=== PATIENT | male | born 1940 | race Caucasian/White ===

== ENCOUNTER → 2019-05-16 | Outpatient (CLI) | payer MEDICARE, BC ==
[2019-05-16 08:39] LABS: Basophils % (A) 0 %; Eosinophils # (A) 0.1 k/uL (0-0.7); Eosinophils % (A) 2 %; HCT 43.4 % (39.0-53.0); HGB 14.1 gm/dL (13.0-17.5); Lymphocytes # (A) 1.3 k/uL (1.0-4.8); Lymphocytes % (A) 21 %; MCH 32.3 pg (25.0-35.0); MCHC 32.6 g/dL (31.0-37.0); MCV 99.1 fL (80.0-100.0); Mean Platelet Volume 7.6; Monocytes # (A) 0.4 k/uL (0-1.0); Monocytes % (A) 7 %; Neutrophils # (A) 3.9 k/uL (1.3-7.7); Neutrophils % (A) 65 %; Platelet Count 307 k/uL (150-450); RBC 4.38 m/uL (4.30-5.90); RDW 13.5 % (11.5-15.5)
[2019-05-16 19:01] LABS: African American GFR (CKD) 84.4 (60.0-200.0); Albumin 4.1 g/dL (3.80-4.90); Albumin/Globulin Ratio 1.86 (1.60-3.17); Anion Gap 7.5 mmol/L (4.00-12.00); Carbon Dioxide 27.5 mmol/L (21.6-31.8); Globulin 2.2 g/dL (1.6-3.3); LDL Cholesterol,Calculated 72.4 mg/dL (0.0-131.0); Potassium 4.5 mmol/L (3.5-5.5); Total Bilirubin 0.3 mg/dL (0.3-1.2); Total Protein 6.3 g/dL (6.2-8.2); VLDL Calculation 13.6 mg/dL (5.00-40.00)
== END | disposition home or self-care (01) ==
LOC: LABWHC1 08:02
PROVIDERS: ATTEND Family Medicine
DX: Z00.00 Encounter for general adult medical examination without abnormal findings (principal)
CPT/HCPCS: 36415; 80053; 80061; 84153; 84443; 85025

== ENCOUNTER 2020-07-19 17:10 | Emergency (ER) | payer MEDICARE, BC ==
[2020-07-19 17:20] VITALS: RESP 18
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
--- NOTE | 2020-07-19 18:15 | XR ---
Lumbar spine HISTORY: Trauma and pain 3 views of the lumbar spine There is multilevel spondylosis. Mild spinal curvature is noted. Lumbar vertebral bodies show preserv ed height and bone mineralization. There is multilevel spondylosis. Loss of disc height is present at the intervertebral levels. Sclerosis present in the posterior elements. Mild depression of the super ior endplate of T12. IMPRESSION: Degenerative disc disease and facet arthropathy. Question some mild anterior wedging, sup erior endplate depression at T12.
--- NOTE | 2020-07-19 18:16 | XR ---
Thoracic spine HISTORY: Trauma and pain 3 views of the thoracic spine, correlation lumbar spine same date There is is spinal curvature. Thoracic vertebral bodies show preserved bone mineralization. There is multilevel spondylosis. Alignment is maintained. Degenerative disc changes are present in the lower c ervical spine. Changes described in the lumbar spine report at T12 are not well seen on this exam. IMPRESSION: No acute fracture or subluxation is evident.
[2020-07-19] MEDS ORDERED: CYCLOBENZAPRINE 10MG STARTER 3 TAB BTL PO STA (18:50)
[2020-07-19 19:01] VITALS: BP 155/80; PULSE 77; TEMP 97.9
== END 2020-07-19 19:01 | disposition home or self-care (01) ==
LOC: EC 17:10
DX: M54.5 Low back pain (principal); H91.92 Unspecified hearing loss, left ear; Z96.21 Cochlear implant status
CPT/HCPCS: 72072; 72100; 99283

== ENCOUNTER 2022-04-14 20:49 | Emergency (ER) | payer MEDICARE, BC ==
[2022-04-14 21:09] VITALS: BP 148/74; PULSE 69; RESP 18; TEMP 98.2
--- NOTE | 2022-04-14 22:11 | US ---
EXAMINATION TYPE: US venous doppler duplex LE LT DATE OF EXAM: 04/14/2022 9:56 PM COMPARISON: NONE CLINICAL HISTORY: Blood clot. SIDE PERFORMED: Left TECHNIQUE: The lower extremity deep venous system is examined utilizing real time linear array sonog andreas with graded compression, doppler sonography and color-flow sonography. VESSELS IMAGED: Common Femoral Vein Deep Femoral Vein Greater Saphenous Vein * Femoral Vein Popliteal Vein Small Saphenous Vein * Proximal Calf Veins (* superficial vessels) Left Leg: Appears negative for DVT IMPRESSION: No evidence of deep vein thrombosis in the left leg.
--- NOTE | 2022-04-14 22:49 | ED ---
Extremity Problem HPI - General Chief complaint: Extremity Problem,Nontraumatic Stated complaint: Possible Blood Clot in L Leg Time Seen by Provider: 04/14/22 22:39 Source: patient Mode of arrival: ambulatory Limitations: no limitations - History of Present Illness Initial comments: This is a pleasant 81-year-old male presents emergency department complaining pain in his left calf which has been bothering him for 3 days. Patient states seems to be exacerbated when he is walking and doing yard work. Denies any pain distally or proximally. No recent immobilization. No history of blood clots. No shortness of breath or chest pain. No headache, no fever or chills, no changes in vision or hearing, no sore throat or difficulty with speech, no neck pain, no chest pain or shortness of breath, no abdominal pain, no nausea or vomiting, no changes in urination or bowel movements, no numbness or tingling, no extremity pain, no skin rashes or lesions. MD Complaint: extremity pain - Related Data Previous Rx's Medication Instructions Recorded Naproxen [Naprosyn] 375 mg PO Q12HR PRN #14 tablet 04/14/22 Allergies Allergy/AdvReac Type Severity Reaction Status Date / Time No Known Allergies Allergy Verified 04/14/22 21:08 Review of Systems ROS Statement: Those systems with pertinent positive or pertinent negative responses have been documented in the HPI. ROS Other: All systems not noted in ROS Statement are negative. 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 COLONOSCOPY. CIRCUMCISION Past Anesthesia/Blood Transfusion Reactions: No Reported Reaction Past Psychological History: No Psychological Hx Reported Smoking Status: Never smoker Past Alcohol Use History: Occasional Past Drug Use History: None Reported - Past Family History Mother Family Medical History: No Reported History General Exam Limitations: no limitations General appearance: alert, in no apparent distress Head exam: Present: atraumatic, normocephalic, normal inspection Eye exam: Present: normal appearance, PERRL, EOMI. Absent: scleral icterus, conjunctival injection, periorbital swelling ENT exam: Present: normal exam, mucous membranes moist Neck exam: Present: normal inspection, full ROM. Absent: tenderness, meningismus, lymphadenopathy Respiratory exam: Present: normal lung sounds bilaterally. Absent: respiratory distress, wheezes, rales, rhonchi, stridor Cardiovascular Exam: Present: regular rate, normal rhythm, normal heart sounds. Absent: systolic murmur, diastolic murmur, rubs, gallop, clicks GI/Abdominal exam: Present: soft, normal bowel sounds. Absent: distended, tenderness, guarding, rebound, rigid Extremities exam: Present: normal inspection, full ROM, normal capillary refill, other (Homans sign is negative, no erythema, no rash, pulses are intact, capillary refill less than 2 seconds, full range of motion all joints. For muscle strength on major muscle groups.). Absent: tenderness, pedal edema, joint swelling, calf tenderness Back exam: Present: normal inspection Neurological exam: Present: alert, oriented X3, CN II-XII intact Psychiatric exam: Present: normal affect, normal mood Skin exam: Present: warm, dry, intact, normal color. Absent: rash Course Vital Signs 04/14/22 21:06 Temperature 98.2 F Pulse Rate 69 Respiratory 18 Rate Blood Pressure 148/74 O2 Sat by Pulse 97 Oximetry Medical Decision Making - Medical Decision Making No evidence of DVT on ultrasound. Patient's entomology most consistent with a calf strain. We'll treat conservatively. Patient was told that if the pain continues he should have the venous Doppler repeated and be rechecked in one week. Patient concurs with this treatment plan. Patient was told to return to the ER for any signs or symptoms worsen. Told to return immediately if any other problems arise. All questions answered. Treatment plan discussed. Patient in agreement Every effort has been made to ensure accuracy of this dictation. However, due to the limitations of electronic medical records and dictation devices, errors in charting still occur. Management Trainee, Dr. Patel Disposition Clinical Impression: Strain of left calf muscle Disposition: HOME SELF-CARE Condition: Good Instructions (If sedation given, give patient instructions): Muscle Strain (ED) Additional Instructions: Follow-up with your regular physician as directed. Return to the ER immediately if any symptoms worsen, new symptoms arise, or any other problems develop. Apply heat 20 minutes on and off for times daily. Take anti-inflammatory medication as directed. You can also add on Tylenol needed. Refrain from any strenuous activity. Recheck in a week if the pain persists. Prescriptions: Naproxen [Naprosyn] 375 mg PO Q12HR PRN #14 tablet PRN Reason: Pain Is patient prescribed a controlled substance at d/c from ED?: No Referrals: Murphy Wallace III, MD [Primary Care Provider] - 04/20/22 Time of Disposition: 22:48
== END 2022-04-14 23:19 | disposition home or self-care (01) ==
LOC: EC 20:49
DX: S86.912A Strain of unspecified muscle(s) and tendon(s) at lower leg level, left leg, initial encounter (principal); X58.XXXA Exposure to other specified factors, initial encounter
CPT/HCPCS: 99283

== ENCOUNTER 2023-06-25 09:24 | Day surgery (SDC) | payer MEDICARE, BC ==
[2023-06-25 10:07] VITALS: RESP 16; TEMP 97
[2023-06-25] MEDS ORDERED: LACTATED RINGERS 1,000 ML IV ONE (10:13)
[2023-06-25] MEDS ORDERED: LACTATED RINGERS 1,000 ML IV SCH (10:14)
[2023-06-25] MEDS ORDERED: LIDOCAINE 1% (10MG/ML) FOR IV START INTRADERMA PRN (10:14)
[2023-06-25] MEDS ORDERED: PROPOFOL 10 MG/ML 20 ML VIAL IV ONE (10:40)
--- NOTE | 2023-06-25 10:46 | P.GSHP ---
History of Present Illness H&P Date: 06/25/23 Chief Complaint: Screening with history of polyps 82-year-old male here today for colonoscopy. Last colonoscopy years ago. Patient with history of multiple colon polyps. No bowel complaints currently. 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 COLONOSCOPY. CIRCUMCISION Past Anesthesia/Blood Transfusion Reactions: No Reported Reaction Past Psychological History: No Psychological Hx Reported Smoking Status: Never smoker Past Alcohol Use History: Occasional Past Drug Use History: None Reported - Past Family History Mother Family Medical History: No Reported History Medications and Allergies Home Medications Medication Instructions Recorded Confirmed Type Latanoprost [Latanoprost 0.005%] 1 drop BOTH EYES BID 06/25/23 06/25/23 History Allergies Allergy/AdvReac Type Severity Reaction Status Date / Time No Known Allergies Allergy Verified 06/25/23 09:58 Surgical - Exam Vital Signs Temp Pulse Resp BP Pulse Ox 97 F L 61 16 149/67 95 06/25/23 10:07 06/25/23 10:07 06/25/23 10:07 06/25/23 10:07 06/25/23 10:07 Physical exam: General: Well-developed, well-nourished HEENT: Normocephalic, sclerae nonicteric Abdomen: Nontender, nondistended Extremities: No edema Neuro: Alert and oriented Assessment and Plan (1) Colon cancer screening Narrative/Plan: Will proceed with colonoscopy at this time. Current Visit: Yes Status: Acute Code(s): Z12.11 - ENCOUNTER FOR SCREENING FOR MALIGNANT NEOPLASM OF COLON SNOMED Code(s): 873751226
--- NOTE | 2023-06-25 11:01 | P.PCN ---
Date of Procedure: 06/25/23 Procedure(s) Performed: PREOPERATIVE DIAGNOSIS: Colon cancer screening with history of polyps POSTOPERATIVE DIAGNOSIS: Transverse colon polyp, diverticulosis PROCEDURE: Colonoscopy with snare polypectomy ANESTHESIA: MAC SURGEON: Jerome Dahl M.D. SPECIMENS: Transverse colon polyp ENDOSCOPIC PROCEDURE: The patient was placed on the endoscopy table in the left decubitus position. The Olympus colonoscope was inserted into the anus and passed under direct visualization to the base of the cecum. The appendiceal orifice was visualized. From that point the scope was slowly withdrawn inspecting all surfaces carefully. There were no neoplastic inflammatory or polypoid lesions throughout the cecum or ascending colon. In the transverse colon a small polyp was seen and removed using the snare with cautery technique. The remainder of the transverse descending sigmoid and rectum appeared normal. There was scattered diverticulosis. The patient's prep was slightly suboptimal. Digital rectal examination was normal. The patient was taken to the recovery room in stable condition per anesthesia guidelines. RECOMMENDATIONS: Await biopsy results. Repeat colonoscopy 5-7 years.
[2023-06-25 11:37] VITALS: BP 140/69; PULSE 63
== END 2023-06-25 11:50 | disposition home or self-care (01) ==
LOC: ORWHC2ENDO 09:24
PROVIDERS: ATTEND Surgery
DX: Z12.11 Encounter for screening for malignant neoplasm of colon (principal); K63.5 Polyp of colon; K57.30 Diverticulosis of large intestine without perforation or abscess without bleeding; Z90.89 Acquired absence of other organs; Z86.59 Personal history of other mental and behavioral disorders; Z79.899 Other long term (current) drug therapy
CPT/HCPCS: 88305; 45385; J2704

== ENCOUNTER 2024-02-07 15:58 | Observation (INO) | payer MEDICARE, BC ==
--- NOTE | 2024-02-07 16:42 | ED ---
Abdominal Pain HPI - General Chief Complaint: Abdominal Pain Stated Complaint: Abd pain - vomitting Time Seen by Provider: 02/07/24 16:40 Source: patient, family, RN notes reviewed Mode of arrival: ambulatory Limitations: no limitations - History of Present Illness Initial Comments: 83-year-old male presenting to the ER with a chief complaint of abdominal pain. He states around 11 AM today he started to have abdominal pain with associated nausea and vomiting. He states he did have a bowel movement which she considers normal after pain began. He rates the pain an 8 out of 10 and states it is "deep". He does describe his abdomen is being more distended than normal. Denies any history of abdominal surgeries or bowel obstructions. Reports a nor mal appetite. He states he did have a colonoscopy years ago which was significant for polyps. reports everything came back normal on biopsy. Denies any fevers, chills, chest pain, shortness of breath, urinary complaints or peripheral edema. - Related Data Home Medications Medication Instructions Recorded Confirmed Latanoprost [Latanoprost 0.005%] 1 drop BOTH EYES HS 06/25/23 06/25/23 Allergies Allergy/AdvReac Type Severity Reaction Status Date / Time No Known Allergies Allergy Verified 02/07/24 16:07 Review of Systems ROS Statement: Those systems with pertinent positive or pertinent negative responses have been documented in the HPI. ROS Other: All systems not noted in ROS Statement are negative. 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 COLONOSCOPY. CIRCUMCISION Past Anesthesia/Blood Transfusion Reactions: No Reported Reaction Past Psychological History: No Psychological Hx Reported Smoking Status: Never smoker Past Alcohol Use History: Occasional Past Drug Use History: None Reported - Past Family History Mother Family Medical History: No Reported History General Exam Limitations: no limitations General appearance: alert, in no apparent distress Head exam: Present: atraumatic, normocephalic, normal inspection Eye exam: Present: normal appearance, PERRL, EOMI. Absent: scleral icterus, conjunctival injection, periorbital swelling Respiratory exam: Present: normal lung sounds bilaterally. Absent: respiratory distress, wheezes, rales, rhonchi, stridor Cardiovascular Exam: Present: regular rate, normal rhythm, normal heart sounds. Absent: systolic murmur, diastolic murmur, rubs, gallop, clicks GI/Abdominal exam: Present: soft, distended, hyperactive bowel sounds Neurological exam: Present: alert, oriented X3, CN II-XII intact Skin exam: Present: warm, dry, intact, normal color. Absent: rash Course Vital Signs 02/07/24 02/07/24 16:02 18:55 Temperature 97.7 F Pulse Rate 58 L 76 Respiratory 16 16 Rate Blood Pressure 168/76 164/91 O2 Sat by Pulse 98 97 Oximetry - Reevaluation(s) Reevaluation #1: 02/07/24 19:[address] Baxter who advises on admission with general surgery on consult. Reevaluation #2: 02/07/24 19:[address] Harmon, [facility], who accepts medical admission. Medical Decision Making - Medical Decision Making Was pt. sent in by a medical professional or institution (, PA, [employer], urgent care, hospital, or usp...) When possible be specific @ -No Did you speak to anyone other than the patient for history (EMS, parent, family, police, friend...)? What history was obtained from this source @ - aiding in HPI. Did you review nursing and triage notes (agree or disagree)? Why? @ -I reviewed and agree with nursing and triage notes Were old charts reviewed (outside hosp., previous admission, EMS record, old EKG, old radiological studies, urgent care reports/EKG's, usp records)? Report findings @ -No old charts were reviewed Differential Diagnosis (chest pain, altered mental status, abdominal pain women, abdominal pain men, vaginal bleeding, weakness, fever, dyspnea, syncope, headache, dizziness, GI bleed, back pain, seizure, CVA, palpatations, mental health, musculoskeletal)? @ -Differential Abdominal Pain Men: Appendicitis, cholecystitis, diverticulosis, ischemic bowel, pancreatitis, hepatitis, UTI, gastroenteritis, AAA, incarcerated hernia, bowel obstruction, constipation, inflammatory bowel, hepatitis, peptic ulcer disease, splenic infarction, perforated viscus, testicular torsion, this is not meant to be an all-inclusive list EKG interpreted by me (3pts min.). @ -As above X-rays interpreted by me (1pt min.). @ -None done CT interpreted by me (1pt min.). @ -CT abdomen pelvis significant for distention of the left abdominal loops of small bowel with nondistention of the terminal ileum. Findings could represent ileus versus partial bowel obstruction. U/S interpreted by me (1pt. min.). @ -None done What testing was considered but not performed or refused? (CT, X-rays, U/S, labs)? Why? @ -None What meds were considered but not given or refused? Why? @ -None Did you discuss the management of the patient with other professionals (professionals i.e. DrBerna, PA, [employer], lab, RT, psych nurse, adoption social worker, health care sanitary technician, teacher, mail officer, keycase assembler)? Give summary @ -Yes, case discussed with Dr. Baxter who advises on admission with general surgery on consult. I also spoke with Dr. Harmon, [facility], who accepts medical admission. Was smoking cessation discussed for >3mins.? @ -No Was critical care preformed (if so, how long)? @ -No Were there social determinants of health that impacted care today? How? (Homelessness, low income, unemployed, alcoholism, drug addiction, transportation, low edu. Level, literacy, decrease access to med. care, group home, rehab)? @ -No Was there de-escalation of care discussed even if they declined (Discuss DNR or withdrawal of care, Hospice)? DNR status @ -No What co-morbidities impacted this encounter? (DM, HTN, Smoking, COPD, CAD, Cancer, CVA, ARF, Chemo, Hep., AIDS, mental health diagnosis, sleep apnea, morbid obesity)? @ -None Was patient admitted / discharged? Hospital course, mention meds given and route, prescriptions, significant lab abnormalities, going to OR and other pertinent info. @ -Admitted. 83-year-old male presented to the ER with chief complaint of abdominal pain and distention. History and physical exam completed. Vitals stable. Patient in no signs of acute distress and nontoxic-appearing. Abdomen mildly distended on exam with hyperactive bowel sounds. Tenderness to upper quadrants. Labs obtained significant for white blood cell count of 17.2 with left shift. Otherwise unremarkable. CT abdomen pelvis concerning of ileus versus partial bowel obstruction. Admission considered due to CT findings. Case discussed wit Dr. Baxter who advises on medicine admission with general surgery on consult. I also spoke with Dr. Harmon, [facility], who accepts medical admission. Blood cultures obtained. Patient started on IV Zosyn and NPO diet. Symptomatic control achieved in ER. Results discussed with patient, all questions answered. Patient agreeable for admission. Case discussed with ED attending, Dr. Ayoub. Undiagnosed new problem with uncertain prognosis? @ -No Drug Therapy requiring intensive monitoring for toxicity (Heparin, Nitro, Insulin, Cardizem)? @ -No Were any procedures done? @ -No Diagnosis/symptom? @ -Partial bowel obstruction/leukocytosis Acute, or Chronic, or Acute on Chronic? @ -Acute Uncomplicated (without systemic symptoms) or Complicated (systemic symptoms)? @ -Complicated Side effects of treatment? @ -No Exacerbation, Progression, or Severe Exacerbation? @ -No Poses a threat to life or bodily function? How? (Chest pain, USA, ME, pneumonia, PE, COPD, DKA, ARF, appy, cholecystitis, CVA, Diverticulitis, Homicidal, Suicidal, threat to staff... and all critical care pts) @ -Yes, can lead to bowel perforation. - Lab Data Result diagrams: 02/07/24 16:54 02/07/24 16:54 Lab Results 02/07/24 02/07/24 02/07/24 Range/Units 16:54 16:54 16:54 WBC 17.2 H (3.8-10.6) k/uL RBC 5.08 (4.30-5.90) m/uL Hgb 16.8 (13.0-17.5) gm/dL Hct 51.1 (39.0-53.0) % MCV 100.7 H (80.0-100.0) fL MCH 33.2 (25.0-35.0) pg MCHC 32.9 (31.0-37.0) g/dL RDW 12.5 (11.5-15.5) % Plt Count 329 (150-450) k/uL MPV 7.7 Neutrophils % 90 % Lymphocytes % 5 % Monocytes % 4 % Eosinophils % 0 % Basophils % 0 % Neutrophils # 15.5 H (1.3-7.7) k/uL Lymphocytes # 0.9 L (1.0-4.8) k/uL Monocytes # 0.6 (0-1.0) k/uL Eosinophils # 0.0 (0-0.7) k/uL Basophils # 0.0 (0-0.2) k/uL Sodium 141 (137-145) mmol/L Potassium 4.0 (3.5-5.1) mmol/L Chloride 103 (98-107) mmol/L Carbon Dioxide 29 (22-30) mmol/L Anion Gap 9 mmol/L BUN 23 H (9-20) mg/dL Creatinine 0.91 (0.66-1.25) mg/dL Est GFR (CKD-EPI)AfAm >90 (>60 ml/min/1.73 sqM) Est GFR (CKD-EPI)NonAf 79 (>60 ml/min/1.73 sqM) Glucose 107 H (74-99) mg/dL Plasma Lactic Acid Simon (0.7-2.0) mmol/L Calcium 9.2 (8.4-10.2) mg/dL Total Bilirubin 0.6 (0.2-1.3) mg/dL AST 26 (17-59) U/L ALT 24 (4-49) U/L Alkaline Phosphatase 93 (38-126) U/L Total Protein 7.5 (6.3-8.2) g/dL Albumin 4.3 (3.5-5.0) g/dL Amylase 69 (30-110) U/L Lipase 71 (23-300) U/L Urine Color Yellow Urine Appearance Cloudy (Clear) Urine pH 7.5 (5.0-8.0) Ur Specific [place] 1.021 (1.001-1.035) Urine Protein Trace H (Negative) Urine Glucose (UA) Negative (Negative) Urine Ketones Negative (Negative) Urine Blood Negative (Negative) Urine Nitrite Negative (Negative) Urine Bilirubin Negative (Negative) Urine Urobilinogen <2.0 (<2.0) mg/dL Ur Leukocyte Esterase Negative (Negative) Urine RBC 2 (0-5) /hpf Urine WBC 2 (0-5) /hpf Amorphous Sediment Occasional H (None) /hpf Urine Mucus Occasional H (None) /hpf 02/07/24 Range/Units 16:54 WBC (3.8-10.6) k/uL RBC (4.30-5.90) m/uL Hgb (13.0-17.5) gm/dL Hct (39.0-53.0) % MCV (80.0-100.0) fL MCH (25.0-35.0) pg MCHC (31.0-37.0) g/dL RDW (11.5-15.5) % Plt Count (150-450) k/uL MPV Neutrophils % % Lymphocytes % % Monocytes % % Eosinophils % % Basophils % % Neutrophils # (1.3-7.7) k/uL Lymphocytes # (1.0-4.8) k/uL Monocytes # (0-1.0) k/uL Eosinophils # (0-0.7) k/uL Basophils # (0-0.2) k/uL Sodium (137-145) mmol/L Potassium (3.5-5.1) mmol/L Chloride (98-107) mmol/L Carbon Dioxide (22-30) mmol/L Anion Gap mmol/L BUN (9-20) mg/dL Creatinine (0.66-1.25) mg/dL Est GFR (CKD-EPI)AfAm (>60 ml/min/1.73 sqM) Est GFR (CKD-EPI)NonAf (>60 ml/min/1.73 sqM) Glucose (74-99) mg/dL Plasma Lactic Acid Simon 1.4 (0.7-2.0) mmol/L Calcium (8.4-10.2) mg/dL Total Bilirubin (0.2-1.3) mg/dL AST (17-59) U/L ALT (4-49) U/L Alkaline Phosphatase (38-126) U/L Total Protein (6.3-8.2) g/dL Albumin (3.5-5.0) g/dL Amylase (30-110) U/L Lipase (23-300) U/L Urine Color Urine Appearance (Clear) Urine pH (5.0-8.0) Ur Specific [place] (1.001-1.035) Urine Protein (Negative) Urine Glucose (UA) (Negative) Urine Ketones (Negative) Urine Blood (Negative) Urine Nitrite (Negative) Urine Bilirubin (Negative) Urine Urobilinogen (<2.0) mg/dL Ur Leukocyte Esterase (Negative) Urine RBC (0-5) /hpf Urine WBC (0-5) /hpf Amorphous Sediment (None) /hpf Urine Mucus (None) /hpf - EKG Data -: EKG Interpreted by Me EKG Comments: EKG at 16: 39 showing sinus bradycardia no acute ST segment or T wave abnormalities. Ventricular rate 56, [place] interval 194, QRS duration 97, QT/QTc 425/418. - Radiology Data Radiology results: report reviewed, image reviewed Disposition Clinical Impression: Partial small bowel obstruction, Leukocytosis Disposition: ADMITTED IP TO THIS [facility] Condition: Good Referrals: None,Stated [Primary Care Provider] - 1-2 days Time of Disposition: 19:06
[2024-02-07] MEDS: SODIUM CHLORIDE 0.9% 1,000 ML IV STA (16:54)
[2024-02-07] MEDS: ONDANSETRON 4 MG/2 ML VIAL IVP STA (16:55)
[2024-02-07] MEDS: ACETAMINOPHEN TAB 325 MG TAB PO STA (16:58)
[2024-02-07 17:11] LABS: Basophils % (A) 0 %; Eosinophils % (A) 0 %; HCT 51.1 % (39.0-53.0); HGB 16.8 gm/dL (13.0-17.5); Lymphocytes # (A) 0.9 k/uL (1.0-4.8); Lymphocytes % (A) 5 %; MCH 33.2 pg (25.0-35.0); MCHC 32.9 g/dL (31.0-37.0); MCV 100.7 fL (80.0-100.0); Mean Platelet Volume 7.7; Monocytes # (A) 0.6 k/uL (0-1.0); Monocytes % (A) 4 %; Neutrophils # (A) 15.5 k/uL (1.3-7.7); Neutrophils % (A) 90 %; Platelet Count 329 k/uL (150-450); RBC 5.08 m/uL (4.30-5.90); RDW 12.5 % (11.5-15.5); WBC 17.2 k/uL (3.8-10.6)
[2024-02-07 17:27] LABS: ALT 24 U/L (4-49); AST 26 U/L (17-59); African American GFR (CKD) >90 (>60 ml/min/1.73 sqM); Albumin 4.3 g/dL (3.5-5.0); Alkaline Phosphatase 93 U/L (38-126); Amylase 69 U/L (30-110); Anion Gap 9 mmol/L; Blood Urea Nitrogen 23 mg/dL (9-20); Calcium 9.2 mg/dL (8.4-10.2); Carbon Dioxide 29 mmol/L (22-30); Chloride 103 mmol/L (98-107); Glucose 107 mg/dL (74-99); Lipase 71 U/L (23-300); Non-African American GFR(CKD) 79 (>60 ml/min/1.73 sqM); Sodium 141 mmol/L (137-145); Total Bilirubin 0.6 mg/dL (0.2-1.3); Total Protein 7.5 g/dL (6.3-8.2)
[2024-02-07 17:36] LABS: Amorphous Sediment,Urine Occasional /hpf; Appearance,Urine Cloudy (Clear); Bilirubin,Urine Negative (Negative); Blood,Urine Negative (Negative); Color,Urine Yellow; Glucose,Urine (UA) Negative (Negative); Ketones,Urine Negative (Negative); Leukocyte Esterase,Urine Negative (Negative); Mucus,Urine Occasional /hpf; Nitrite,Urine Negative (Negative); PH, Urine 7.5 (5.0-8.0); Protein,Urine Trace (Negative); RBC,Urine 2 /hpf (0-5); Specific Gravity,Urine 1.021 (1.001-1.035); Urobilinogen,Urine <2.0 mg/dL (<2.0); WBC,Urine 2 /hpf (0-5)
--- NOTE | 2024-02-07 18:13 | CT ---
EXAMINATION TYPE: CT abdomen pelvis w con CT DLP: 979.4 mGycm, Automated exposure control for dose reduction was used. DATE OF EXAM: 02/07/2024 5:49 PM COMPARISON: none CLINICAL INDICATION:Male, 83 years old with history of abdominal pain/ distention; Lower rib/abdomina l pain with distention TECHNIQUE: Axial CT abdomen pelvis w con;Sagittal and coronal reformats were created on a separate w orkstation. Contrast used:100ml mL of Isovue 300 with IV Contrast, (none if empty) Oral contrast used: without Oral Contrast (none if empty) FINDINGS: LOWER CHEST: Unremarkable ABDOMEN LIVER: Unremarkable GALLBLADDER AND BILE DUCTS: Unremarkable. PANCREAS: Unremarkable. SPLEEN: Unremarkable. ADRENAL GLANDS: Unremarkable. KIDNEYS AND URETERS: No evidence of hydronephrosis or renal calculus. The ureters are unremarkable. PELVIS BLADDER: Unremarkable REPRODUCTIVE: Unremarkable. ABDOMEN & PELVIS STOMACH AND BOWEL: No evidence of bowel obstruction. There is relative distention of left abdominal s mall bowel with nondistention of right. No definitive transition point identified. There is stool see n throughout the colon. PERITONEUM/RETROPERITONEUM: No evidence of pneumoperitoneum or free fluid. VASCULATURE: No evidence of aortic aneurysm. MUSCULOSKELETAL: No acute osseous abnormalities. Moderate disc degeneration changes are present throu ghout the thoracolumbar spine. LYMPH NODES: No gross evidence for lymphadenopathy. SOFT TISSUE/ABDOMINAL WALL: Unremarkable IMPRESSION: Distention of left abdominal loops of small bowel with nondistention of the terminal ileum. Findings could represent ileus versus partial bowel obstruction given stool throughout the colon. Dedicated all bowel follow-through recommended.
[2024-02-07] MEDS ORDERED: ONDANSETRON 4 MG/2 ML VIAL IVP PRN (18:53)
[2024-02-07] MEDS ORDERED: NALOXONE 0.4 MG/ML 1 ML VIAL IV PRN (18:53)
[2024-02-07] MEDS ORDERED: ACETAMINOPHEN TAB 325 MG TAB PO PRN (18:53)
[2024-02-07] MEDS ORDERED: HYDROmorphone 0.5 MG/0.5 ML SYRINGE IVP PRN (18:53)
[2024-02-07] MEDS: PIPERACILLIN-TAZOBACTAM 3.375 GM in SODIUM CHLORIDE 0.9% 100 ML IVPB STA (21:09)
[2024-02-07] MEDS: SODIUM CHLORIDE 0.9% 1,000 ML IV SCH (21:10)
--- NOTE | 2024-02-08 12:34 | P.HPIM ---
History of Present Illness This is a pleasant 83 years old male with past medical history of deafness, no other documented significant past medical history. at bedside states patient had COVID about 13 days ago however now is asymptomatic Patient presents because of severe abdominal pain 10/10 that started yesterday Pain is made worse in the epigastrium Patient had 1 bowel movement yesterday but it was a good 1. No nausea vomiting and patient states his abdominal pain is 0/10 now He is sitting in chair like normal He denies chest pain no urinary symptoms no headache dizziness weakness or numbness He denies smoking alcohol or illicit drugs He is afebrile. Vitals look stable He has mild leukocytosis at 17,000 rest of labs including BMP LFT urinalysis were unremarkable EKG showing sinus bradycardia at [address]-T changes CT of the abdomen and pelvis showing distended small bowel loops suspicious for partial small obstruction versus ileus Patient received 1 dose of Zosyn in ER and normal saline and admitted with surgery team consult. Surgeon already evaluated the patient Review of Systems Review of systems CONSTITUTIONAL: No fever, no malaise, no fatigue. HEENT: No recent visual problems or hearing problems. Denied any sore throat. CARDIOVASCULAR: No orthopnea, PND, no palpitations, no syncope. PULMONARY: No shortness of breath, no cough, no hemoptysis. GASTROINTESTINAL: No diarrhea, no nausea, no vomiting,. Normoactive bowel sounds. NEUROLOGICAL: No headaches, no weakness, no numbness. HEMATOLOGICAL: Denies any bleeding or petechiae. GENITOURINARY: Denies any burning micturition, frequency, or urgency. MUSCULOSKELETAL/RHEUMATOLOGICAL: Denies any joint pain, swelling, or any muscle pain. ENDOCRINE: Denies any polyuria or polydipsia. 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 COLONOSCOPY. CIRCUMCISION Past Anesthesia/Blood Transfusion Reactions: No Reported Reaction Past Psychological History: No Psychological Hx Reported Smoking Status: Never smoker Past Alcohol Use History: Occasional Past Drug Use History: None Reported - Past Family History Mother Family Medical History: No Reported History Medications and Allergies Home Medications Medication Instructions Recorded Confirmed Type Latanoprost [Latanoprost 0.005%] 1 drop BOTH EYES HS 06/25/23 02/07/24 History Allergies Allergy/AdvReac Type Severity Reaction Status Date / Time No Known Allergies Allergy Verified 02/07/24 16:07 Physical Exam Vitals: Vital Signs Temp Pulse Pulse Resp BP BP Pulse Ox 02/08/24 08:30 97.3 F L 60 17 121/66 97 02/08/24 02:11 98.2 F 54 L 14 113/43 97 02/07/24 20:34 98.2 F 64 17 159/70 97 02/07/24 18:55 76 16 164/91 97 02/07/24 16:02 97.7 F 58 L 16 168/76 98 Intake and Output 02/07/24 02/08/24 02/08/24 22:59 06:59 14:59 Other: Voiding Method Toilet Toilet # Voids 6 Weight 79.379 kg GENERAL: The patient is alert and oriented x3, not in any acute distress. Well developed, well nourished. HEENT: Pupils are round and equally reacting to light. EOMI. No scleral icterus. No conjunctival pallor. Normocephalic, atraumatic. No pharyngeal erythema. No thyromegaly. CARDIOVASCULAR: S1 and S2 present. No murmurs, rubs, or gallops. PULMONARY: Chest is clear to auscultation, no wheezing , no crackles. ABDOMEN: Soft, nontender, nondistended, normoactive bowel sounds. No palpable organomegaly. MUSCULOSKELETAL: No joint swelling or deformity. EXTREMITIES: No cyanosis, clubbing, or pedal edema. NEUROLOGICAL: Gross neurological examination did not reveal any focal deficits. SKIN: No rashes. no petechiae. Results CBC & Chem 7: 02/07/24 16:54 02/07/24 16:54 Labs: Abnormal Lab Results - Last 24 Hours (Table) 02/07/24 02/07/24 02/07/24 Range/Units 16:54 16:54 16:54 WBC 17.2 H (3.8-10.6) k/uL MCV 100.7 H (80.0-100.0) fL Neutrophils # 15.5 H (1.3-7.7) k/uL Lymphocytes # 0.9 L (1.0-4.8) k/uL BUN 23 H (9-20) mg/dL Glucose 107 H (74-99) mg/dL Urine Protein Trace H (Negative) Amorphous Sediment Occasional H (None) /hpf Urine Mucus Occasional H (None) /hpf Thrombosis Risk Factor Assmnt - Choose All That Apply Any of the Below Risk Factors Present?: Yes Each Risk Factor Represents 3 Points: Age 75 years or older Thrombosis Risk Factor Assessment Total Risk Factor Score: 3 Thrombosis Risk Factor Assessment Level: Moderate Risk Assessment and Plan Assessment: small bowel obstruction versus ileus, acute Recent COVID infection Deafness and hearing difficulty Mild asymptomatic bradycardia Plan: Surgical team consulted and evaluated the patient chech TSH And follow-up WBC keep with bowel rest, currently on liquid diet Pain is controlled Continue gentle hydration Labs and medication were reviewed.. Continue same treatment. Continue with symptomatic treatment. Monitor labs and vitals. DVT and GI prophylaxis. Further recommendations as per clinical course of the patient DVT prophylaxis: Subcutaneous heparin GI Prophylaxis: Pepcid Prognosis is guarded
[2024-02-08] MEDS: PIPERACILLIN-TAZOBACTAM 3.375 GM in SODIUM CHLORIDE 0.9% 100 ML IVPB STA (13:13)
[2024-02-08] MEDS ORDERED: PIPERACILLIN-TAZOBACTAM 3.375 GM in SODIUM CHLORIDE 0.9% 100 ML IVPB SCH (17:00)
--- NOTE | 2024-02-08 17:22 | P.CON ---
Consult Note - . Consult date: 02/08/24 Assessment/Plan:: patient is a 83-year-old male presenting to [facility] with complaints of abdominal pain. Patient states that he had severe abdominal pain yesterday however this improved with a large bowel movement. Patient states h e's had episodes like this before in the past but not to this extent. Patient currently denies nausea, vomiting, fevers, chills, shortness of breath or chest pain. Patient also denies other constitutional symptoms such as night sweats and weight loss. Patient had a colonoscopy roughly 1 year ago. Patient is currently passing flatus. Review of systems CONSTITUTIONAL: No fever, no malaise, no fatigue. HEENT: No recent visual problems or hearing problems. Denied any sore throat. CARDIOVASCULAR: No orthopnea, PND, no palpitations, no syncope. PULMONARY: No shortness of breath, no cough, no hemoptysis. GASTROINTESTINAL: No diarrhea, no nausea, no vomiting,. Normoactive bowel sounds. NEUROLOGICAL: No headaches, no weakness, no numbness. HEMATOLOGICAL: Denies any bleeding or petechiae. GENITOURINARY: Denies any burning micturition, frequency, or urgency. MUSCULOSKELETAL/RHEUMATOLOGICAL: Denies any joint pain, swelling, or any muscle pain. ENDOCRINE: Denies any polyuria or polydipsia. 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 COLONOSCOPY. CIRCUMCISION Past Anesthesia/Blood Transfusion Reactions: No Reported Reaction Past Psychological History: No Psychological Hx Reported Smoking Status: Never smoker Past Alcohol Use History: Occasional Past Drug Use History: None Reported Physical exam: HEENT: Normocephalic, sclerae nonicteric Chest: Clear to auscultation Heart: Regular rate and rhythm Abdomen: [Nontender, nondistended] Extremities: No edema Neuro: Alert and oriented assessment and plan 83-year-old male with resolved abdominal pain Likely resolving ileus secondary to resolving: Pneumonia? Patient is having bowel movements/flatus denies abdominal pain at this time patient can trial on a clear liquid diet and up as diet as tolerated.
[2024-02-08] MEDS: LATANOPROST 0.005% OPHTH DROPS 2.5 ML BTL BOTH EYES SCH (20:40)
[2024-02-08] MEDS: HEPARIN SODIUM,PORCINE 5,000 UNIT/ML 1 ML VIAL SQ SCH (20:40)
[2024-02-08] MEDS: FAMOTIDINE 20 MG/2 ML VIAL IV SCH (20:40)
[2024-02-09 07:47] LABS: HCT 45.9 % (39.0-53.0); HGB 15.1 gm/dL (13.0-17.5); MCH 33.5 pg (25.0-35.0); MCV 101.6 fL (80.0-100.0); Macrocytosis Slight; Mean Platelet Volume 8.2; Platelet Count 306 k/uL (150-450); RBC 4.51 m/uL (4.30-5.90); RDW 12.9 % (11.5-15.5); WBC 5.4 k/uL (3.8-10.6)
[2024-02-09 10:06] VITALS: RESP 17
--- NOTE | 2024-02-09 12:57 | P.PN ---
Subjective Progress Note Date: 02/09/24 He reports abdominal pain now resolved. He tolerated clears. He has COVID. CT reviewed with findings consistent with bowel obstruction PLAN: 1. With no previous surgery, recommend outpatient follow up for lysis of adhesions as outpatient. 2. Stable for discharge from surgical standpoint once tolerating regular diet. Objective - Vital Signs Vital signs: Vital Signs Temp 97.8 F 02/09/24 08:41 Pulse 56 L 02/09/24 08:41 Resp 17 02/09/24 08:41 BP 154/76 02/09/24 08:41 Pulse Ox 99 02/09/24 08:41 FiO2 Intake & Output 02/08/24 02/09/24 02/09/24 18:59 06:59 18:59 Intake Total 950 Balance 950 Intake: Oral 950 Other: Voiding Method Toilet Toilet Toilet # Voids 4 3 # Bowel Movements 1 - Labs CBC & Chem 7: 02/09/24 06:37 02/07/24 16:54 Labs: Abnormal Lab Results - Last 24 Hours (Table) 02/09/24 Range/Units 06:37 MCV 101.6 H (80.0-100.0) fL Microbiology - Last 24 Hours (Table) 02/07/24 20:00 Blood Culture - Preliminary Blood 02/07/24 20:15 Blood Culture - Preliminary Blood
[2024-02-09 16:42] VITALS: BP 161/54; PULSE 57; TEMP 98.1
== END 2024-02-09 16:57 | disposition home or self-care (01) ==
LOC: EC 15:58 → 4SSUR 18:46
PROVIDERS: ADMIT Internal Medicine; ATTEND Internal Medicine
DX: R10.9 Unspecified abdominal pain (principal); R11.10 Vomiting, unspecified; D72.829 Elevated white blood cell count, unspecified; R00.1 Bradycardia, unspecified; H91.92 Unspecified hearing loss, left ear; Z86.16 Personal history of COVID-19
CPT/HCPCS: 96376; 96361; 96365; 96366 ×2; 96372 ×2; 96375 ×2; 99285; 36415; 93005; 80053; 84443; 82150; 83605; 83690; 85025; 85027; 81001; 87040; 74177; G0378 ×3; J2543 ×2; J1644 ×2; J2405; J3490 ×2; Q9967